=== PATIENT | female | born 1980 | race African-American/Black ===

== ENCOUNTER 2022-07-18 12:06 | Inpatient (IN) | payer OTHER ==
[~2022-07-18] VITALS: Ht 154.9 cm; Wt 95.3 kg
[2022-07-18 12:30] VITALS: BP 125/74
[2022-07-18 13:03] LABS: BASO % 0.2 % (0.0-1.0); EOS # 0.2 10*3/uL (0.0-0.4); EOS % 1.8 % (1.0-4.0); HEMATOCRIT 33.6 % (37.0-47.0); LYMPH # 2.4 10*3/uL (1.3-4.4); LYMPH % 26.2 % (27.0-41.0); MEAN CELL VOLUME 94.1 fl (81.0-99.0); MEAN CORPUSCULAR HGB 31.4 pg (27.0-31.0); MEAN CORPUSCULAR HGB CONC 33.3 g/dl (33.0-37.0); MEAN PLATELET VOLUME 9.5 fl (9.6-12.3); MONO # 0.5 10*3/uL (0.1-1.0); MONO % 5.8 % (3.0-9.0); NEUT # 5.9 10*3/uL (2.3-7.9); NEUT % 65.8 % (47.0-73.0); PLATELET COUNT AUTOMATED 295 10*3/uL (130-400); RED BLOOD COUNT 3.57 10*6/uL (4.10-5.10)
[2022-07-18 13:16] LABS: ACT PARTIAL THROMBO TIME 32.7 SECONDS (20.0-32.1)
[2022-07-18 13:27] LABS: ALKALINE PHOSPHATASE 62 U/L (46-116); BUN 5 mg/dl (9-23); CHLORIDE 109 mmol/L (98-107); POTASSIUM 4.4 mmol/L (3.4-5.1); SGPT/ALT 12 U/L (10-49); TOTAL PROTEIN 7.3 gm/dL (6.0-8.0)
[2022-07-18 13:30] LABS: BETA-HCG, QUANT < 3.0 mIU/mL (3-10); ETHYL ALCOHOL < 3.0 mg/dl (<3)
[2022-07-18] MEDS ORDERED: BUSPIRONE HCL30 MG PO (13:46)
[2022-07-18] MEDS ORDERED: INVEGA SUSTENN234 MG IM (13:47)
[2022-07-18] MEDS ORDERED: VISTARIL50 MG PO (13:48)
[2022-07-18] MEDS ORDERED: DEPAKOTE125 M1 PO (13:49)
[2022-07-18] MEDS ORDERED: NORVASC10 MG PO (13:50)
[2022-07-18 14:30] VITALS: BP 117/70
[2022-07-18 14:39] LABS: BILIRUBIN Negative (Negative); BLOOD 3+ (Negative); CLARITY Cloudy (Clear); COLOR Red (Yellow); GLUCOSE Negative (Negative); KETONE Negative (Negative); LEUKO ESTERASE 1+ (Negative); NITRITE Negative (Negative); SPECIFIC GRAVITY 1.015 (1.001-1.030); UROBILINOGEN 0.2 E.U./dl (0.0-1.0)
[2022-07-18 14:55] LABS: PH 8.5 (4.5-8.0)
[2022-07-18 14:59] LABS: BACTERIA 1+; EPITHELIAL CELLS 21-30; RBC TNTC rbc/hpf (0-2)
[2022-07-18 15:00] LABS: URINE AMPHETAMINES Negative (1000ng/ml); URINE BARBITURATES Negative (200ng/ml); URINE BENZODIAZEPINES Negative (200ng/ml); URINE CANNABINOIDS (THC) Positive (50ng/ml); URINE COCAINE Negative (300ng/ml); URINE METHADONE Negative (300ng/ml); URINE OPIATES Negative (300ng/ml); URINE PHENCYCLIDINE Negative (25ng/ml)
[2022-07-18 16:00] VITALS: BP 117/70
[2022-07-18 20:00] VITALS: BP 117/72
[2022-07-19] VITALS: BP 110/64
[2022-07-19 08:00] VITALS: BP 118/67
== END 2022-07-19 11:23 | disposition left against medical advice (07) | DRG 894 ==
LOC: ED 12:06 → EDHOLD 12:36 → 4E 12:36
PROVIDERS: Emergency Medicine; ADMIT Student in an Organized Health Care Education/Training Program; ATTEND Student in an Organized Health Care Education/Training Program
DX: F10.230 Alcohol dependence with withdrawal, uncomplicated (principal); F17.210 Nicotine dependence, cigarettes, uncomplicated; F12.10 Cannabis abuse, uncomplicated; F41.9 Anxiety disorder, unspecified; I10 Essential (primary) hypertension; F31.9 Bipolar disorder, unspecified; E87.8 Other disorders of electrolyte and fluid balance, not elsewhere classified; D64.9 Anemia, unspecified; Z53.29 Procedure and treatment not carried out because of patient's decision for other reasons; Z79.899 Other long term (current) drug therapy; Z71.6 Tobacco abuse counseling; F10.29 Alcohol dependence with unspecified alcohol-induced disorder